=== PATIENT | male | born 1985 | race American Indian/Alaskan Native ===

== ENCOUNTER 2019-04-20 12:27 | Day surgery (SDC) | payer OTHER ==
[~2019-04-20 12:27] MED LIST: LACTATED RINGERS 1,000 ML IV SCH
[2019-04-20] MEDS ORDERED: ANCEF/STERILE WATER 2 GM/20 ML 2 GM/20 ML SYRINGE IV ONE (13:32)
--- NOTE | 2019-04-20 13:59 | Anesthesia Day of Surgery ---
Anesthesia Day of Surgery - Day of Surgery Patient Examined: Yes Patient H&P Reviewed: Yes Patient is NPO: Yes
--- NOTE | 2019-04-20 13:59 | Anesthesia Consultation ---
Anesthesia Consult and Med Hx Date of service: 04/20/19 - Airway Anesthetic Teeth Evaluation: Good ROM Head & Neck: Adequate Mental/Hyoid Distance: Adequate Mallampati Class: Class III Intubation Access Assessment: Possibly Difficult (large pisano) - Pulmonary Exam CTA: Yes - Cardiac Exam Cardiac Exam: RRR - Pre-Operative Health Status ASA Pre-Surgery Classification: ASA2 Proposed Anesthetic Plan: General - Pulmonary Hx Smoking: Yes (occasional) Hx Respiratory Symptoms: No COPD: No Hx Sleep Apnea: No (LISA PRE SCREEN HIGH RISK) - Cardiovascular System Hx Hypertension: No Hx Heart Attack/AMI: No - Central Nervous System Hx Seizures: No CVA: No - Gastrointestinal Hx Gastroesophageal Reflux Disease: No - Endocrine Hx Renal Disease: No Hx Liver Disease: No Hx Insulin Dependent Diabetes: No Hx Non-Insulin Dependent Diabetes: No Hx Thyroid Disease: No - Other Systems Hx Obesity: Yes - Additional Comments Anesthesia Medical History Comments: No prior GA or FHx anesthetic complications.
[2019-04-20] MEDS ORDERED: ANCEF/STERILE WATER 2 GM/20 ML IV NR (14:00)
[2019-04-20] MEDS ORDERED: VERSED IV NR (14:00)
[2019-04-20] MEDS ORDERED: DIPRIVAN 10 MG/ML IV ONE (16:05)
[2019-04-20] MEDS ORDERED: XYLOCAINE MPF 2% ONE (16:05)
[2019-04-20] MEDS ORDERED: SUBLIMAZE ONE (16:05)
[2019-04-20] MEDS ORDERED: BACITRACIN ONE (17:21)
[2019-04-20] MEDS ORDERED: MARCAINE 0.25% INFILTRATI ONE ×2 (17:38→18:06)
[2019-04-20] MEDS ORDERED: TRIPLE ANTIBIOTIC TP ONE (17:44)
--- NOTE | 2019-04-20 18:20 | Short Stay Summary ---
Short Stay Documentation Date of service: 04/20/19 - History H&P: obtained from office - Allergies and Medications Current Medications: Allergies No Known Allergies Allergy (Verified 04/12/19 17:31) Home Medications Medication Instructions Recorded Confirmed Last Taken Type Valacyclovir HCl [Valtrex] 1,000 mg PO QDAY PRN 04/20/19 04/20/19 03/30/19 History Active Medications Cefazolin Sodium (Ancef/Sterile Water 2 Gm/20 Ml) 2 gm IV PREOP NR Stop: 04/20/19 23:59 Hydromorphone HCl (Dilaudid) 0.5 mg IV Q10MIN PRN PRN Reason: Pain , Severe (7-10) Stop: 04/20/19 23:59 Lactated Ringer's (Lactated Ringers) 1,000 mls @ 100 mls/hr IV DIRECT KALI Last Admin: 04/20/19 13:10 Dose: 100 mls/hr Documented by: Midazolam HCl (Versed) 2 mg IV PREOP NR Stop: 04/20/19 23:59 - Brief post op/procedure progress note Date of procedure: 04/20/19 Pre-op diagnosis: blanatins phim Post-op diagnosis: same Procedure: circumcision Findings: no dev Surgeon: ASHLEY DALEY Estimated blood loss: minimal Pathology: list (foreskin) Specimen disposition: to lab Condition: stable - Hospital course Hospital course: or pacu home - Disposition Condition at discharge: Good Disposition: DC-01 TO HOME OR SELFCARE Short Stay Discharge Plan Activity: advance as tolerated Diet: advance as tolerated Follow up with: ASHLEY DALEY MD [Staff Physician] - 7 Days
[2019-04-20] MEDS: DILAUDID IV PRN ×2 (18:21→18:31)
[2019-04-20] MEDS ORDERED: ZOFRAN IV PRN (18:28)
[2019-04-20 18:50] VITALS: BP 127/71
--- NOTE | 2019-04-20 19:41 | Post Anesthesia Evaluation ---
- Post Anesthesia Evaluation Patient Participated: Yes Airway Patent: Yes Stable Respiratory Function: Yes Nausea/Vomiting: No Temp > 96.8F: Yes Pain Manageable: Yes Adequeate Hydration: Yes Anesthesia Complications: No
--- NOTE | 2019-05-03 14:08 | Operative Report ---
PREOPERATIVE DIAGNOSES: Balanitis, phimosis. POSTOPERATIVE DIAGNOSES: Balanitis, phimosis. PROCEDURE: Circumcision. SURGEON: Giovanni Lyon M.D. ANESTHESIA: General. SPECIMENS: Foreskin. ESTIMATED BLOOD LOSS: Minimal. COMPLICATIONS: None. CLINICAL INDICATIONS: The patient was counseled on risks, benefits, complications, and alternatives. Also counseled ____ to remove damage skin, risks include that will not look cosmetically ____ may still look like an uncircumcised penis, additionally especially due to his weight and suprapubic fat pad, additionally talked about it could be too short causing pain with erections, loss of erections, loss of sensation and other disfigurement and risks discussed. DESCRIPTION OF PROCEDURE: The patient was transferred to OR suite in supine position, anesthesia, prepped and draped in standard fashion. Attention was taken to the foreskin, there was some mild inflammation. A circumferential line was made proximally and distally in our standard fashion. At this point from the 12 o'clock position, incision was made with hemostats placed at 4 corners. Next, free sleeve was dissected and using an electrocautery and sharp dissection. Once the free sleeve was removed, we approximated at the 12 o'clock, 3 o'clock, 6 o'clock, and 9 o'clock positions with 3-0 chromic. In between these sutures, 3-0 chromics were placed, in between, these 4-0 Vicryl placed and a few 4-0 chromic to close the open areas. At the end of the procedure, there appeared to be adequate appearance and adequate skin removal. At this point, the area was cleaned. Neosporin placed, Vaseline gauze, Kerlix and a Coban with slight pressure, but not excessive pressure, inspected and did not appear would restrict any blood flow. At this point, the patient was awakened and transferred to PACU in good and stable condition. JOB# [id number] ATS/LIGIA
== END 2019-04-20 19:35 | disposition home or self-care (01) ==
LOC: OR 12:27
PROVIDERS: ATTEND Urology
DX: N47.1 Phimosis (principal); N48.1 Balanitis; E66.9 Obesity, unspecified; Z68.36 Body mass index [BMI] 36.0-36.9, adult; Z98.890 Other specified postprocedural states; Z79.899 Other long term (current) drug therapy
CPT/HCPCS: 54161; 88304; J0690; J1170; J2405; J2704; J3010; J7120; A6250